=== PATIENT | female | born 1950 | race Caucasian/White ===

== ENCOUNTER 2021-03-08 21:29 | Inpatient (IN) | payer MEDICARE, OTHER ==
[~2021-03-08] VITALS: Ht 172.7 cm; Wt 49.9 kg
--- NOTE | 2021-03-08 21:39 | NUR ---
GPS ADMISSION NOTE, RECEIVED PATIENT FROM [facility]. PATIENT ARRIVED ON THIS UNIT AT 2139VIA STRETCHER WITH 2 EMT ESCORTS. PATIENT ADMITTED ON A 5150 HOLD FOR GD. PER HOLD PATIENT IS WAS BROUGHT IN TO THE EMERGENCY ROOM FOR AGGRESSIVE BEHAVIOR. PATIENT IS VERY PARANOID, YELLING, AND BEING VERBALLY ABUSIVE. PATIENT STATES, " YOU'RE A QUACK AND GET THE FUCK OUT OF MY ROOM ". PATIENT IS UNABLE TO ARTICULATE A VIABLE PLAN OF SELF CARE AT THIS TIME. THE 5150 WAS REVIEWED AND THE DOCUMENTATION IN THE 5150 HOLD APPEARS TO REFLECT THE PRESENTATION OF THE PATIENT. UPON FACE TO FACE ASSESSMENT PATIENT IS NOTED TO BEING HYPERVERBAL, DISHEVELED, DISORGANIZED, DEMANDING, ARGUMENTATIVE, UNCOOPERATIVE, AND NEEDS REDIRECTION. PATIENT IS CURRENTLY LYING IN BED AWAKE, HAS NO S/S OR COMPLAINTS OF PAIN. PATIENT IS DISPLAYING NO S/S OF APPARENT DISTRESS. PATIENT BREATHING IS UNLABORED WITH EQUAL RISE AND FALL OF THE CHEST. PATIENT IS ALERT AND ORIENTATED X 2 ON ROOM AIR. PATIENT ASSISTED WITH TURING AND REPOSITIONING Q2HR AND PRN FOR COMFORT AND CIRCULATION. PATIENT HAS NO NEEDS AT THIS TIME. PATIENT DENIES SUICIDE IDEATIONS AND HOMICIDAL IDEATIONS AT THIS TIME. PATIENT REFUSED TO SIGNS ANY PAPER WORK AND THINKS THIS IS ALL A MISTAKE. PATIENT ADVISED OF HER HOLD AND PATIENT RIGHTS BOOKLET GIVEN. PATIENT IS UNDER THE PSYCHIATRIC CARE OF DR. GIBBS AND THE MEDICAL CARE OF DR SCHAFFER. PATIENT BELONGINGS WERE INVENTORIED AND CHECKED FOR CONTRABAND. ALL CONTRABAND REMOVED AND STORED IN PATIENT HALLWAY LOCKER. PATIENT ADVANCED DIRECTIVES PREFERENCE, IMMUNIZATIONS QUESTIONER, NECESSARY PAPERWORK COMPLETED. PATIENT REFUSED SKIN ASSESSMENT. PATIENT ORIENTATED TO ROOM, FLOOR, AND STAFF WITH ALL QUESTIONS ANSWERED. PATIENT EDUCATED ON THE USE OF THE CALL GIBSON. PATIENT BED SIDE RAILS ARE UP X 2 FOR SAFETY. PATIENT BED IS LOCKED, LOW AND I WILL CONTINUE TO MONITOR THIS PATIENT Q 15 MIN WITH THE HELP OF STAFF TO MAINTAIN SAFETY.
[2021-03-08] MEDS ORDERED: ACETAMINOPHEN 325 MG TABLET PO PRN (22:30)
[2021-03-08] MEDS ORDERED: MAG HYDROX/AL HYDROX/SIMETH 30 ML UDC PO PRN (22:30)
[2021-03-08] MEDS ORDERED: MAGNESIUM HYDROXIDE 30 ML UDC PO PRN (22:30)
[2021-03-08] MEDS ORDERED: TEMAZEPAM 7.5 MG CAPSULE PO PRN (22:30)
[2021-03-08] MEDS ORDERED: ARIP5TAB10 PO (22:47)
[2021-03-08] MEDS ORDERED: HALO5TAB PO (22:48)
[2021-03-08] MEDS ORDERED: IBUP-1953 PO (22:49)
[2021-03-08] MEDS ORDERED: ALBU8.5H8 INH (22:51)
[2021-03-08] MEDS ORDERED: BENZ-13 PO (22:52)
[2021-03-08] MEDS ORDERED: ERGO50CA PO (22:54)
[2021-03-08] MEDS ORDERED: LISI10TA29 PO (22:55)
[2021-03-08] MEDS ORDERED: BLOOD SUGAR DIAGNOSTIC 1 EACH STRIP IN ONE (23:00)
[2021-03-09] MEDS ORDERED: BENZONATATE 100 MG CAPSULE PO PRN
[2021-03-09] MEDS ORDERED: ALBUTEROL FS 2.5 MG/3 ML VIAL.NEB IH PRN (00:30)
[2021-03-09 08:00] VITALS: BP 129/76
[2021-03-09] MEDS: NICOTINE PATCH (14MG) 14 MG PATCH.TD24 TD SCH (08:38)
[2021-03-09] MEDS: LISINOPRIL (10MG) 10 MG TABLET PO SCH (08:38)
--- NOTE | 2021-03-09 08:39 | NUR ---
RN-NOTES PATIENT REFUSED NICOTINE PATCH AND BP MEDICATION. EXPLAINED RISK AND BENEFITS BUT PATIENT STATED" I KNOW I'M A DOCTOR AND I KNOW WHAT MEDICATIONS ARE AND IF I I WILL FOR MY COUNTRY NOT FROM YOUR [facility] COUNTRY". PATIENT CONTINUE TALKING ANGRILY WITH THE STONE LAYER USING FOUL LANGUAGES.MEDICATIONS OFFERED X3.
--- NOTE | 2021-03-09 09:44 | NUR ---
PRUDENCIO Initial Discharge Plan: Pt did not share any information. Per records, pt appears to be homeless. Pt will need placement, however, pt is uncooperative at this time. Pt does not have any family members at this time. PRUDENCIO will work with the pt and MD to coordinate appropriate discharge.
--- NOTE | 2021-03-09 09:45 | NUR ---
SW Admit Source: Pt brought from [facility]. Pt was verbally abusive at the ER and was aggressive. Pt was paranoid and was not answering any questions. Pt was brought to [facility] and was placed on a 5150 hold for GD. Pt is homeless and does not have a placement. SW will work with pt to find placement. Pt was uncooperative at this time and was verbally abusive.
--- NOTE | 2021-03-09 09:47 | NUR ---
Treatment Plan: Pt refused to sign treatment plan and was verbally abusive with this senior medical writer.
--- NOTE | 2021-03-09 10:24 | NUR ---
RN-NOTES NOTED PATIENT YELLING AND SCREAMING AT STAFF INTRUSIVE AND VERBALLY ABUSING USING FOUL LANGUAGES. STATED" YOU GO HOME TO [place] YOUR COUNTRY, YOU DON'T BELONG HERE BITCH". REDIRECTED AND DR. GIBBS MADE AWARE WITH T.O ORDER OF HALDOL 2MG IM ONCE AND ATIVAN 1MG IM ONCE. NOTED AND CARRIED OUT.
[2021-03-09] MEDS ORDERED: LORAZEPAM INJ 2 MG/ML VIAL IV ONE (10:30)
[2021-03-09] MEDS ORDERED: HALOPERIDOL LACTATE INJ 5 MG/ML VIAL IM ONE (10:30)
[2021-03-09 16:00] VITALS: BP 119/69
[2021-03-09 20:00] VITALS: BP 114/60
--- NOTE | 2021-03-09 21:58 | NUR ---
RN GPS NOTES PAGED DR. GIBBS CLARIFIED TEGRETOL AND RISPERDAL ORDERS. DR. GIBBS CALLED BACK WITH ORDERS OF TEGRETOL 200MG PO BID AND RISPERDAL 1MG PO BID ORDERS NOTED AND CARRIED OUT.
[2021-03-09] MEDS: risperiDONE 1 MG TABLET PO SCH (22:00)
[2021-03-09] MEDS: CARBAMAZEPINE 200 MG TABLET PO SCH (22:00)
--- NOTE | 2021-03-09 22:23 | NUR ---
GPS RN NOTES: MEDICATION REFUSAL PATIENT REFUSED SCHEDULED MEDS FOR TONIGHT TEGRETOL AND RISPERDAL. EXPLAINED RISKS/BENEFITS. PATIENT CONTINUED TO REFUSE X3. PATIENT STATED, NO, "I DON'T WANT TO TAKE IT". WILL CONTINUE TO MONITOR
[2021-03-10] MEDS: IBUPROFEN 600 MG TABLET PO PRN (01:59)
--- NOTE | 2021-03-10 01:59 | NUR ---
GPS RN NOTES PATIENT C/O GENERALIZED BODY PAIN. PATIENT RATES 610. MOTRIN 600MG PO GIVEN PRN ORDER. WILL CONTINUE TO MONITOR AND REASSESS.
[2021-03-10 08:00] VITALS: BP 129/63
[2021-03-10] MEDS: risperiDONE 1 MG TABLET PO SCH ×2 (08:30→17:33)
[2021-03-10] MEDS: CARBAMAZEPINE 200 MG TABLET PO SCH ×2 (08:30→17:33)
[2021-03-10] MEDS: LISINOPRIL (10MG) 10 MG TABLET PO SCH (08:31)
[2021-03-10] MEDS: NICOTINE PATCH (14MG) 14 MG PATCH.TD24 TD SCH (08:38)
[2021-03-10 15:12] LABS: BASOPHILS # (AUTO) 0.1 K/uL (0.0-0.2); BASOPHILS % (AUTO) 1.2 % (0.0-2.0); EOSINOPHILS % (AUTO) 2.3 % (0.0-6.0); HEMATOCRIT 33 % (33-45); HEMOGLOBIN 11.3 g/dL (11.5-14.8); LYMPHOCYTES % (AUTO) 25.3 % (20.0-44.0); MEAN CORPUSCULAR HGB CONC 34 g/dl (31.0-36.0); MEAN CORPUSCULAR VOLUME 90 fL (82-100); MONOCYTES # (AUTO) 0.5 K/uL (0.1-1.30); MONOCYTES % (AUTO) 12.1 % (2.0-12.0); NEUTROPHILS # (AUTO) 2.4 K/uL (1.8-8.9); NEUTROPHILS % (AUTO) 59.1 % (43.0-81.0); PLATELET COUNT (AUTO) 225 K/uL (150-450); RED BLOOD CELL COUNT(AUTO) 3.69 MIL/uL (4.0-5.2); WHITE BLOOD COUNT (AUTO) 4.1 K/uL (4.3-11.0)
[2021-03-10 15:23] LABS: CALCIUM, SERUM 8.2 mg/dL (8.5-10.1); CREATININE 0.8 mg/dL (0.6-1.3); POTASSIUM 4.3 mmol/L (3.5-5.1)
[2021-03-10 16:00] VITALS: BP 115/67
[2021-03-10 20:00] VITALS: BP 139/68
[2021-03-11] MEDS: NICOTINE PATCH (14MG) 14 MG PATCH.TD24 TD SCH (09:00)
[2021-03-11] MEDS: risperiDONE 1 MG TABLET PO SCH ×2 (09:37→17:19)
[2021-03-11] MEDS: CARBAMAZEPINE 200 MG TABLET PO SCH ×2 (09:37→17:19)
[2021-03-11] MEDS: LISINOPRIL (10MG) 10 MG TABLET PO SCH (09:38)
[2021-03-11 20:00] VITALS: BP 132/69
[2021-03-12] MEDS: LORAZEPAM 1 MG TABLET PO PRN (01:20)
--- NOTE | 2021-03-12 01:23 | NUR ---
RN NOTES : ANXIETY PT. C/O ANXIOUS , PARANOID HYPERBERBAL,RESTLESS PACING IN HALLWAY , PRN ATIVAN 1 MG PO GIVEN PER PT. REQUEST,WILL CONTINUE TO MONITOR.
[2021-03-12 08:00] VITALS: BP 111/64
[2021-03-12] MEDS: LISINOPRIL (10MG) 10 MG TABLET PO SCH (09:00)
[2021-03-12] MEDS: NICOTINE PATCH (14MG) 14 MG PATCH.TD24 TD SCH (09:42)
[2021-03-12] MEDS: CARBAMAZEPINE 200 MG TABLET PO SCH ×2 (09:42→17:52)
[2021-03-12] MEDS: risperiDONE 1 MG TABLET PO SCH ×3 (09:44→23:30)
[2021-03-12 16:00] VITALS: BP 131/72
[2021-03-12 19:45] VITALS: BP 137/72
[2021-03-13 08:00] VITALS: BP 115/71
[2021-03-13] MEDS: CARBAMAZEPINE 200 MG TABLET PO SCH ×2 (08:32→16:03)
[2021-03-13] MEDS: LISINOPRIL (10MG) 10 MG TABLET PO SCH (08:32)
[2021-03-13] MEDS: risperiDONE 1 MG TABLET PO SCH ×2 (08:32→21:00)
[2021-03-13] MEDS: NICOTINE PATCH (14MG) 14 MG PATCH.TD24 TD SCH (08:33)
--- NOTE | 2021-03-13 10:01 | NUR ---
Court Hearing: Patient's court hearing for 8560 was today and it was upheld for GD and danger to others.
--- NOTE | 2021-03-13 11:30 | NUR ---
SW Note: SW spoke with patient in regards to discharge/placement. Pt stated she would want a nursing facility.
--- NOTE | 2021-03-13 11:30 | NUR ---
PRUDENCIO SNF Referral: PRUDENCIO sent referral to [place] ([phone]) from [facility]. PRUDENCIO sent clinicals for placement option: H & P, progress notes, and medication list.
[2021-03-13 16:00] VITALS: BP 114/66
[2021-03-13 19:39] VITALS: BP 109/58
[2021-03-13 20:00] VITALS: BP 109/58
--- NOTE | 2021-03-13 21:44 | NUR ---
GPS RN NOTES: MEDICATION REFUSAL PATIENT REFUSED SCHEDULED MEDICINE RISPERDAL 2 MG FOR TONIGHT (2100). EXPLAINED RISKS/BENEFITS. PATIENT CONTINUED TO REFUSE X3. PATIENT STATED, NO, " I DON'T NEED IT, LET ME SLEEP." WILL CONTINUE TO MONITOR CLOSELY.
--- NOTE | 2021-03-13 21:50 | NUR ---
GPS RN NOTE: REFUSED SKIN ASSESSMENT PATIENT REFUSED SKIN ASSESSMENT TONIGHT X 3 DESPITE OF RISKS AND BENEFITS EXPLANATIONS, UNCOOPERATIVE, EASILY AGITATED. WILL CONTINUE TO MONITOR.
--- NOTE | 2021-03-13 22:13 | NUR ---
GPS RN NOTE: PATIENT SEEN BY DR. SAI DAILY AND INFORMED DR. GIBBS REGARDING PATIENT'S MEDICATION REFUSAL ABIMBOLA (RISPERDAL 2 MG AT 2100).
[2021-03-14] MEDS: LORAZEPAM 1 MG TABLET PO PRN (01:12)
--- NOTE | 2021-03-14 01:15 | NUR ---
GPS RN NOTE: ANXIETY PATIENT VERBALIZED BEING RESTLESS AND ANXIOUS. PATIENT REQUESTED TO TAKE ATIVAN AT THIS TIME. PRN ATIVAN 1 MG PO ADMINISTERED. WILL CONTINUE TO MONITOR.
[2021-03-14] MEDS: IBUPROFEN 600 MG TABLET PO PRN (06:41)
--- NOTE | 2021-03-14 06:44 | NUR ---
GPS RN NOTE: UPPER BACK PAIN PATIENT C/O UPPER BACK PAIN 5/10 AND REQUESTED TO TAKE MOTRIN. PRN MOTRIN 600 MG PO ADMINISTERED.
[2021-03-14 08:00] VITALS: BP 111/60
[2021-03-14] MEDS: NICOTINE PATCH (14MG) 14 MG PATCH.TD24 TD SCH (08:28)
[2021-03-14] MEDS: risperiDONE 1 MG TABLET PO SCH ×2 (08:28→20:09)
[2021-03-14] MEDS: CARBAMAZEPINE 200 MG TABLET PO SCH ×2 (08:28→16:41)
[2021-03-14] MEDS: LISINOPRIL (10MG) 10 MG TABLET PO SCH (08:29)
--- NOTE | 2021-03-14 09:52 | NUR ---
ORTHOSTATIC BP ORDERED BY DATA REDUCTION TECHNICIAN LAZO: LAYIN/64 91 SITTIN/65 89 STANDIN/65 99
[2021-03-14 16:00] VITALS: BP 108/59
[2021-03-14 19:57] VITALS: BP 145/61
[2021-03-15 08:00] VITALS: BP 148/99
[2021-03-15] MEDS: CARBAMAZEPINE 200 MG TABLET PO SCH ×2 (08:37→16:31)
[2021-03-15] MEDS: risperiDONE 1 MG TABLET PO SCH ×2 (08:37→21:19)
[2021-03-15] MEDS: LISINOPRIL (10MG) 10 MG TABLET PO SCH (08:37)
[2021-03-15] MEDS: NICOTINE PATCH (14MG) 14 MG PATCH.TD24 TD SCH (08:47)
--- NOTE | 2021-03-15 08:50 | NUR ---
RN-NOTES REFUSED NICOTINE PATCH, EXPLAINED RISK AND BENEFITS BUT STATED" I WILL NOT TAKING NICOTINE PATCH ,BECAUSE THERE IS AND NICOTINE ON IT". OFFERED X3
[2021-03-15 16:00] VITALS: BP 140/76
[2021-03-15 20:00] VITALS: BP 119/58
[2021-03-16 08:00] VITALS: BP 131/73
[2021-03-16 08:10] VITALS: BP 131/73
[2021-03-16] MEDS: LISINOPRIL (10MG) 10 MG TABLET PO SCH (08:10)
[2021-03-16] MEDS: risperiDONE 1 MG TABLET PO SCH (08:10)
[2021-03-16] MEDS: NICOTINE PATCH (14MG) 14 MG PATCH.TD24 TD SCH (08:10)
[2021-03-16] MEDS: CARBAMAZEPINE 200 MG TABLET PO SCH (08:10)
--- NOTE | 2021-03-16 08:17 | NUR ---
SW Discharge Note: Patient will be discharged to a [facility] located at [address] [place] [address]; ([phone]) Please arrange ambulance transportation. Cylinder Worker spoke with Julio, Instructor Technical Training at [facility] ([phone]) stated patient will be accepted at facility today. Patient is alert and oriented x2, and is not able to plan for self-care at this time, but is willing to accept care provided for her at the facility. Patient denies any suicidal or homicidal ideations. Patient is aware and agreeable with discharge plans. Patient does not have any supportive contact at this time. Patient will continue to follow-up with her (Psychiatrist) located at [address] [address]; ([phone]) and (Hadoop Application Developer) Dr. Rocha [address] [facility] [address], [place] [address]; ([phone]). Patient given resources to [facility] ([phone]), [facility] ([phone]), and [facility] ([phone]) for drinking occasionally. Patient refused to sign the homeless waiver upon discharge and a copy was placed in the chart. Homeless resources were provided and include [address] information line for shelters and homeless resources. A copy of all resources given to patient was also placed in the chart. Patient presents with euthymic mood and congruent affect.
--- NOTE | 2021-03-16 09:02 | NUR ---
Antonio gave an order to D/C hold and D/C to [facility], to follow up with psych and medical doctors and reconciled the psych meds. Dr. Buchanan made aware of the discharge and reconciled the meds. Pt. without distress, denies suicidal and homicidal. Belongings ready and discharge papers ready.
--- NOTE | 2021-03-16 10:45 | NUR ---
Report given to Leonides TOVAR over the facility.
--- NOTE | 2021-03-16 13:55 | NUR ---
Pt. left the unit via ambulance and transported via a gurney. Left without distress, v/s taken: BP 110/58, PA 82, RR 20, temp 98.0 and oxygen sat 99%.
--- NOTE | 2021-03-21 15:55 | NUR ---
SW Note: [facility] ([phone]) Kim came to peanut picker pt's belongings from the hospital (one luggage).
== END 2021-03-16 13:55 | DRG 885 ==
LOC: GPS 21:29
PROVIDERS: ADMIT Psychiatry & Neurology Psychiatry; ATTEND Internal Medicine
DX: F25.9 Schizoaffective disorder, unspecified (principal); F29 Unspecified psychosis not due to a substance or known physiological condition; Z79.51 Long term (current) use of inhaled steroids; Z79.899 Other long term (current) drug therapy; F41.9 Anxiety disorder, unspecified; I10 Essential (primary) hypertension; Z20.822 Contact with and (suspected) exposure to COVID-19; J44.9 Chronic obstructive pulmonary disease, unspecified; F31.9 Bipolar disorder, unspecified; F17.200 Nicotine dependence, unspecified, uncomplicated; Z85.3 Personal history of malignant neoplasm of breast; Z90.12 Acquired absence of left breast and nipple; G31.84 Mild cognitive impairment of uncertain or unknown etiology; Z73.6 Limitation of activities due to disability; Z91.19 Patient's noncompliance with other medical treatment and regimen; Z91.14 Patient's other noncompliance with medication regimen
CPT/HCPCS: 36415; 80048-TC; 80061-TC; 80156-TC; 85025-TC; 87081-TC; J1630; J2060